=== PATIENT | male | born 1995 | race Caucasian/White ===

== ENCOUNTER 2016-12-18 23:10 | Emergency (ER) | payer SELFPAY ==
[~2016-12-18] VITALS: Ht 188 cm; Wt 93.3 kg
[~2016-12-18 23:10] MED LIST: AMOXICILLIN875 MG PO; AUGMENTIN875 MG PO; FLEXERIL10 MG PO; LIDODERM 5% P1 PATCH TD; MOTRIN600 MG PO; NAPROSYN500 MG PO; PERCOCET 5/31 TABLET PO; TRAMADOL HCL50 MG PO; ZOFRAN ODT4 MG PO
[2016-12-19 01:33] LABS: ADD MIUA? NO; BILIRUBIN NEGATIVE; BLOOD NEGATIVE; COLOR YELLOW ((YELLOW)); GLUCOSE (STRIP) NEGATIVE; KETONES NEGATIVE; LEUKOCYTES NEGATIVE; NITRITE NEGATIVE; PROTEIN (STRIP) NEGATIVE; UCUL ADDED? NO; UROBILINOGEN 0.2 MG/DL (0.2-1.0)
[2016-12-19] MEDS ORDERED: ROBITUSSIN AC,T10 ML PO (02:00)
[2016-12-19] MEDS ORDERED: VENTOLIN HFA18 GM IH (02:00)
[2016-12-19] MEDS ORDERED: PREDNISONE20 MG PO (02:00)
[2016-12-19] MEDS ORDERED: ZITHROMAX Z-PA250 MG PO (02:00)
[2016-12-19 02:37] VITALS: BP 130/76
[2016-12-21 12:59] LABS: CHLAMYDIA TRACHOMATIS NEGATIVE; NEISSERIA GONORRHOEAE NEGATIVE
== END 2016-12-19 02:40 | disposition home or self-care (01) ==
LOC: EME 23:10
PROVIDERS: Physician Assistant
DX: J20.9 Acute bronchitis, unspecified (principal); F17.200 Nicotine dependence, unspecified, uncomplicated; Z87.442 Personal history of urinary calculi
CPT/HCPCS: 71020; 81003; 87491; 87591; 94640; 94640 76; 99281; 99284; J7512

== ENCOUNTER 2017-10-16 19:13 | Emergency (ER) | payer OTHER ==
[~2017-10-16] VITALS: Ht 188 cm; Wt 99.5 kg
[~2017-10-16 19:13] MED LIST changes: +PREDNISONE20 MG PO; +ROBITUSSIN AC,T10 ML PO; +VENTOLIN HFA18 GM IH; +ZITHROMAX Z-PA250 MG PO
[2017-10-16 21:18] VITALS: BP 123/73
== END 2017-10-16 21:18 | disposition home or self-care (01) ==
LOC: EME 19:13
PROC: 0HQGXZZ Repair Left Hand Skin, External Approach (ICD-10-PCS; principal; 2017-10-16)
DX: S61.012A Laceration without foreign body of left thumb without damage to nail, initial encounter (principal); W26.0XXA Contact with knife, initial encounter; Y93.G3 Activity, cooking and baking; Y99.0 Civilian activity done for income or pay
CPT/HCPCS: 99281; 99284

== ENCOUNTER 2017-12-13 05:27 | Emergency (ER) | payer OTHER ==
[~2017-12-13] VITALS: Ht 188 cm; Wt 96.4 kg
[2017-12-13 06:20] LABS: SOURCE URINE
[2017-12-13 06:25] LABS: APPEARANCE SL.HAZY ((CLEAR)); BILIRUBIN NEGATIVE; BLOOD NEGATIVE; COLOR YELLOW ((YELLOW)); GLUCOSE (STRIP) NEGATIVE; KETONES NEGATIVE; LEUKOCYTES NEGATIVE; NITRITE NEGATIVE; PROTEIN (STRIP) 30; SPECIFIC GRAVITY 1.016 (1.000-1.030)
[2017-12-13 06:31] LABS: BACTERIA RARE /HPF; CALCIUM OXALATE CRYSTALS 1+ /HPF; EPITHELIAL CELLS RARE /HPF; HYALINE CASTS 0-5 /LPF; MUCUS 2+ /LPF; RED BLOOD CELLS 0-5 /HPF (0-5); WHITE BLOOD CELLS 0-5 /HPF (0-5)
[2017-12-13 08:00] VITALS: BP 140/78
[2017-12-13 13:11] LABS: CHLAMYDIA TRACHOMATIS NEGATIVE; NEISSERIA GONORRHOEAE NEGATIVE
== END 2017-12-13 08:02 | disposition home or self-care (01) ==
LOC: EME 05:27
PROVIDERS: Nurse Practitioner Family
DX: R30.0 Dysuria (principal); N48.89 Other specified disorders of penis; Z86.19 Personal history of other infectious and parasitic diseases
CPT/HCPCS: 81003; 87491; 87591; 99281; 99284; J0696

== ENCOUNTER 2017-12-16 09:00 | Emergency (ER) | payer OTHER ==
[~2017-12-16] VITALS: Ht 188 cm; Wt 98.9 kg
[2017-12-16 09:45] LABS: HEMATOCRIT 46.5 % (38.0-50.0); HEMOGLOBIN 15.8 G/DL (12.5-16.6); MCH 31.2 PG (29.0-34.0); MCV 91.9 FL (86-99); PLATELET COUNT 193 K/uL (156-360); RBC DIS.WIDTH-CV 12.2 % (11.8-14.6); RBC DIS.WIDTH-SD 40.9 % (39-53); RED BLOOD COUNT 5.06 M/uL (4.00-5.50); WHITE BLOOD COUNT 9.5 K/uL (4.1-10.2)
[2017-12-16 09:54] LABS: CHLORIDE 110 mEq/L (99-109); POTASSIUM 4.1 mEq/L (3.7-5.4); SODIUM 143 mEq/L (136-147)
[2017-12-16 09:55] LABS: GLUCOSE 93 mg/dL (70-99)
[2017-12-16 09:59] LABS: CREATININE 0.7 mg/dL (0.6-1.3); GFR ESTIMATE (CALCULATED) > 59 mL/min/ (58.99-99999)
[2017-12-16 10:00] LABS: UREA NITROGEN (BUN) 12 mg/dL (9-23)
[2017-12-16 12:08] LABS: APPEARANCE CLOUDY ((CLEAR)); BILIRUBIN NEGATIVE; BLOOD LARGE; COLOR AMBER ((YELLOW)); GLUCOSE (STRIP) NEGATIVE; KETONES NEGATIVE; LEUKOCYTES NEGATIVE; NITRITE NEGATIVE; PROTEIN (STRIP) 30; SPECIFIC GRAVITY 1.019 (1.000-1.030); UROBILINOGEN 0.2 MG/DL (0.2-1.0)
[2017-12-16 12:38] LABS: BACTERIA 1+ /HPF; EPITHELIAL CELLS NONE SEEN /HPF; MUCUS NONE SEEN /LPF; RED BLOOD CELLS TNTC /HPF (0-5); UCUL ADDED? YES; WHITE BLOOD CELLS NONE SEEN /HPF (0-5)
[2017-12-16] MEDS ORDERED: PERCOCET 5/31 TABLET PO (14:00)
[2017-12-16 14:34] VITALS: BP 136/77
== END 2017-12-16 14:34 | disposition home or self-care (01) ==
LOC: EME 09:00
DX: N13.2 Hydronephrosis with renal and ureteral calculous obstruction (principal); Z87.442 Personal history of urinary calculi; F17.200 Nicotine dependence, unspecified, uncomplicated
CPT/HCPCS: 74176; 80048; 81003; 85027; 87086; 99281; 99285; J1885; J3010; J7030